=== PATIENT | female | born 1960 | race African-American/Black ===

== ENCOUNTER 2017-11-18 09:16 | Day surgery (SDC) | payer OTHER ==
[2017-11-13 14:46] VITALS: BMI 43.7
[2017-11-18] MEDS ORDERED: PROPOFOL 20 ML ONE ×2 (09:20)
[2017-11-18] MEDS ORDERED: LIDOCAINE HCL/PF 2% SDV 5ML VIAL ONE (09:21)
[2017-11-18 11:15] VITALS: TEMP 97.4
[2017-11-18 11:40] VITALS: BP 140/86; PULSE 72
== END 2017-11-18 12:29 | disposition home or self-care (01) ==
LOC: FASU 09:16
PROVIDERS: ATTEND Internal Medicine Gastroenterology
PROC: 0DJD8ZZ Inspection of Lower Intestinal Tract, Via Natural or Artificial Opening Endoscopic (ICD-10-PCS; principal; 2017-11-18 10:39)
DX: Z86.010 Personal history of colon polyps (principal); K57.30 Diverticulosis of large intestine without perforation or abscess without bleeding
CPT/HCPCS: 82962

== ENCOUNTER 2019-06-24 04:43 | Day surgery (SDC) | payer OTHER | END 2019-06-24 15:00 | disposition home or self-care (01) | LOC: JASU-SURG 04:43 ==

== ENCOUNTER 2019-08-01 14:50 | Emergency (ER) | payer OTHER ==
--- NOTE | 2019-08-01 14:55 | PDOC ---
History of Present Illness - General Chief Complaint: Pain Stated Complaint: RIGHT SHOULDER Time Seen by Provider: 08/01/19 14:53 - History of Present Illness Initial Comments: The pt is a 59F w/ a history of HTN, HLD, T2DM, OA, and asthma who presents for evaluation of acute on chronic right shoulder pain. The pt reports long standing waxing and waning right shoulder pain that she will intermittently take Tramadol for. Yesterday her shoulder pain became spontaneously worse and was only minimally relieved by the Tramadol. She reports decreased ROM 2/2 pain. She denies trauma, injury, previous surgery, fevers, changes in sensation , or changes in strength. She states she received an injection in this shoulder 2 years ago for pain but has not required one since. 08/01/19 15:09 Past History - Past Medical History Allergies/Adverse Reactions: Allergies Allergy/AdvReac Type Severity Reaction Status Date / Time ketorolac tromethamine Allergy Intermediate "itchy,heart Verified 06/19/19 15:12 [From Toradol] beats fast,nausea" Home Medications: Ambulatory Orders Albuterol Sulfate Inhaler - [Ventolin Hfa Inhaler -] 1 - 2 inh PO PRN PRN Metformin HCl [Glucophage] 500 mg PO BID 06/19/19 Tramadol HCl 50 mg PO PRN PRN 06/19/19 Anemia: No Asthma: Yes ("no recent attack") Cancer: No Cardiac Disorders: No CVA: No COPD: No CHF: No Dementia: No Diabetes: Yes GI Disorders: No Disorders: No HTN: Yes Hypercholesterolemia: Yes Liver Disease: No Seizures: No Thyroid Disease: No - Surgical History Abdominal Surgery: No Appendectomy: Yes Cardiac Surgery: No Cholecystectomy: Yes Lung Surgery: No Neurologic Surgery: No Orthopedic Surgery: No - Immunization History Td Vaccination: Yes Immunization Up to Date: No - Psycho Social/Smoking Cessation Hx Smoking Status: No Smoking History: Never smoked Have you smoked in the past 12 months: No Number of Cigarettes Smoked Daily: 0 Cigars Per Day: 0 Hx Alcohol Use: Yes (socially) Drug/Substance Use Hx: No Substance Use Type: Alcohol Hx Substance Use Treatment: No Review of Systems - Review of Systems Able to Perform ROS?: Yes Comments:: GENERAL/CONSTITUTIONAL: No fever or chills. No weakness HEAD, EYES, EARS, NOSE AND THROAT: No change in vision. No change in hearing. No sore throat CARDIOVASCULAR: No chest pain or shortness of breath RESPIRATORY: Denies cough, hemoptysis GASTROINTESTINAL: No nausea, vomiting, diarrhea or constipation GENITOURINARY: No dysuria, frequency, or change in urination MUSCULOSKELETAL: +chronic b/l shoulder, back, and left knee pain SKIN: No rash NEUROLOGIC: No headache, vertigo, loss of consciousness, or change in strength/ sensation ENDOCRINE: No increased thirst. No abnormal weight change HEMATOLOGIC/LYMPHATIC: No anemia, easy bleeding ALLERGIC/IMMUNOLOGIC: No hives or skin allergy 08/01/19 14:54 Is the patient limited Dominican proficient: No *Physical Exam - Vital Signs Vital Signs Period Temp Pulse Resp BP Sys/Bosch Pulse Ox Last 24 Hr 98.3 F 72 16 156/90 98 08/01/19 15:15 - Physical Exam Comments: GENERAL: Awake, alert, and oriented to person/place/time, in no acute distress HEAD: No signs of trauma, normocephalic, atraumatic EYES: PERRLA, EOMI, sclera anicteric, conjunctiva clear ENT: Hearing grossly normal, nares patent. Moist mucosa LUNGS: No distress, speaks in full sentences, clear to auscultation bilaterally HEART: Regular rate and rhythm, normal S1 and S2, no murmurs appreciated, peripheral pulses normal and equal bilaterally ABDOMEN: Soft, protuberant, nontender, normoactive bowel sounds. No guarding, no rebound BACK: Right upper back w/ mild tenderness. No midline TTP over C/T/L spine EXTREMITIES: Right shoulder with reduced active abduction, flexion, and extension 2/2 pain. No overlying erythema or swelling appreciated on exam. 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 NEUROLOGICAL: Cranial nerves II through XII grossly intact. Normal speech, normal gait, no focal sensorimotor deficits SKIN: Warm, Dry 08/01/19 14:54 Medical Decision Making - Medical Decision Making The pt is a 59F w/ a history of T2DM, HTN, HLD, OA, and asthma who presents for evaluation of atraumatic acute on chronic right shoulder pain w/o swelling/ effusion/erythema/fever. ED Course Tylenol and Naproxen for pain R shoulder XR Will provide sling for comfort 08/01/19 15:29 R shoulder XR w/o acute fx/dislocation Plan for D/C w/ Ortho f/u Discharge instructions and return precautions given Pt in agreement and verbalized understanding Dispo: home 08/01/19 16:12 Discharge - Discharge Information Problems reviewed: Yes Clinical Impression/Diagnosis: Right shoulder pain Qualifiers: Chronicity: chronic Qualified Code(s): M25.511 - Pain in right shoulder Condition: Good - Admission No - Follow up/Referral Referrals: Shashi Mcneill MD [Primary Care Provider] - Alli Reddy MD [Staff Physician] - - Patient Discharge Instructions Patient Printed Discharge Instructions: DI for Osteoarthritis Additional Instructions: You were seen in the Emergency Department for evaluation of right shoulder pain. You were treated with Tylenol and Naproxen. Your x-ray was negative for acute fracture/pathology. Review the handout provided at discharge. Follow up with the Orthopedic referral given. For pain you may take Tylenol 650mg every 6 hours and Ibuprofen 600mg every 6-8 hours, alternating them each time. If your pain is not controlled with these, the Tramadol may be used for breakthrough pain. Return to the Emergency Department if you develop fevers/chills, joint swelling , redness, changes in sensation or strength, worsening symptoms, or any new/ concerning symptoms. - Post Discharge Activity
[2019-08-01 15:03] VITALS: TEMP 98.3; BMI 44.6
[2019-08-01] MEDS ORDERED: ACETAMINOPHEN 500 MG TABLET (FP) PO ONE (15:12)
[2019-08-01] MEDS ORDERED: ACETAMINOPHEN 500 MG TABLET (FP) ONE (15:15)
[2019-08-01] MEDS ORDERED: NAPROXEN 500 MG TABLET (FP) PO ONE (15:28)
[2019-08-01] MEDS ORDERED: NAPROXEN 500 MG TABLET (FP) ONE (15:30)
[2019-08-01 16:03] VITALS: BP 160/83; PULSE 70
--- NOTE | 2019-08-01 16:20 | PDOC ---
Attending Attestation - Resident Resident Name: JimboNadeem - ED Attending Attestation I have performed the following: I have examined & evaluated the patient, The case was reviewed & discussed with the resident, I agree w/resident's findings & plan - HPI HPI: 08/01/19 16:17 59-year-old female, works here in the hospital, has history of arthritis. Presents now complaining of increasing right shoulder arthritis, no trauma. No fever. Pain is worse with any movement of the arm, in any direction. - Physicial Exam PE: 08/01/19 16:18 Patient is awake, alert, complaining of right shoulder pain, holding the shoulder splinted because pain is induced by movement. There is no cervical spine tenderness. There is mild right trapezius tenderness. There is tenderness all around the glenohumeral joint posterior, superior, and anterior. There is no before meals joint tenderness. Strength and sensation in the right arm is intact. - Medical Decision Making 08/01/19 16:19 3 views of the right shoulder were performed. There is no fracture or dislocation. Radiology follow-up procedure was activated at the time of x-ray review as final radiology reading and review is pending. Patient advised to take Tylenol and/or Naprosyn as needed for pain. Sling provided. Orthopedic follow-up with her orthopedist Dr. Reddy advised next week.
== END 2019-08-01 16:26 | disposition home or self-care (01) ==
LOC: FER 14:50
DX: M25.511 Pain in right shoulder (principal); E11.9 Type 2 diabetes mellitus without complications; I10 Essential (primary) hypertension; E78.5 Hyperlipidemia, unspecified; M19.90 Unspecified osteoarthritis, unspecified site; J45.909 Unspecified asthma, uncomplicated
CPT/HCPCS: 73030-TC-RT-FY; 99282-25

== ENCOUNTER 2019-11-14 19:45 | Emergency (ER) | payer OTHER ==
[2019-11-14 20:01] VITALS: BP 138/69; PULSE 85; TEMP 98; BMI 44.6
[2019-11-14] MEDS ORDERED: predniSONE 20 MG TABLET (UD) PO ONE (20:21)
--- NOTE | 2019-11-14 20:22 | PDOC ---
Documentation entered by Gali Carey SCRIBE, acting as scribe for Michael Garrett MD. Michael Garrett MD: This documentation has been prepared by the luizibe, Gali Carey SCRIBE, under my direction and personally reviewed by me in its entirety. I confirm that the documentation accurately reflects all work , treatment, procedures, and medical decision making performed by me. History of Present Illness - General Chief Complaint: Pain Stated Complaint: RT ANKLE PAIN Time Seen by Provider: 11/14/19 19:48 History Source: Patient Exam Limitations: No Limitations - History of Present Illness Initial Comments: 11/14/19 20:14 The patient is a 59-year-old female who presents to the emergency department with right ankle pain. The patient reports over a year ago, she injured her ankle while walking. Since the incident, the patient has been having intermittent episodes of sharp pain to the right ankle, mostly felt on the lateral aspect of the ankle. Denies weakness or loss of sensation. PAST MEDICAL HISTORY: HTN, HLD, T2DM, OA, and asthma PAST SURGICAL HISTORY: Appendectomy and Cholecystectomy. FAMILY HISTORY: no pertinent history SOCIAL HISTORY: Pt lives with family and is employed at [employer]. MEDICATIONS: reviewed ALLERGIES: As per nursing notes PCP: Dr. Darren Mcneill. Review of system: General: No fevers or chills, no weakness, no weight loss HEENT: No change in vision. No sore throat,. No ear pain CardioVascular: No chest pain or shortness of breath Respiratory:No cough, or wheezing. Gastrointestinal: no nausea, vomiting, diarrhea or constipation, No rectal bleeding Genitourinary: No dysuria, hematuria, or frequency Musculoskeletal: +right ankle pain. No other joint or muscle pain or swelling Neurologic: No headache, vertigo, dizziness or loss of consciousness Psychiatric: nor depression Skin: No rashes or easy bruising Endocrine: no increased thirst or abnormal weight change Allergic: no skin or latex allergy All other systems reviewed and normal. Physical exam: GENERAL: The patient is awake, alert, and fully oriented, in no acute distress. HEAD: Normal with no signs of trauma. EYES: Pupils equal, round and reactive to light, extraocular movements intact, sclera anicteric, conjunctiva clear. EXTREMITIES: +no swelling, ecchymosis, erythema or increased warmth, some tenderness on palpation of the soft tissue of the lateral foot and ankle. Neurovascularly intact. Normal range of motion, no edema. NEUROLOGICAL: Normal speech, normal gait. PSYCH: Normal mood, normal affect. SKIN: Warm, Dry, normal turgor, no rashes or lesions noted. 11/14/19 21:09 Assessment and plan: This is a 59-year-old female who comes in complaining of right ankle pain. Patient has a history of twisting that ankle approximately 1 year ago. Patient states she has had intermittent pain but now it seems to be worse. Patient did have some discomfort on palpation of the soft tissues of the lateral ankle. An x-ray was done that does show degenerative changes in the that area as well so this most likely is the cause of her pain. Patient was recommended to follow-up with an orthopedist and or a research scholar. Patient discharged home Past History - Past Medical History Allergies/Adverse Reactions: Allergies Allergy/AdvReac Type Severity Reaction Status Date / Time ketorolac tromethamine Allergy Intermediate "itchy,heart Verified 06/19/19 15:12 [From Toradol] beats fast,nausea" Home Medications: Ambulatory Orders Albuterol Sulfate Inhaler - [Ventolin Hfa Inhaler -] 1 - 2 inh PO PRN PRN Metformin HCl [Glucophage] 500 mg PO BID 06/19/19 Tramadol HCl 50 mg PO PRN PRN 06/19/19 Anemia: No Asthma: Yes ("no recent attack") Cancer: No Cardiac Disorders: No CVA: No COPD: No CHF: No Dementia: No Diabetes: Yes GI Disorders: No Disorders: No HTN: Yes Hypercholesterolemia: Yes Liver Disease: No Seizures: No Thyroid Disease: No - Surgical History Abdominal Surgery: No Appendectomy: Yes Cardiac Surgery: No Cholecystectomy: Yes Lung Surgery: No Neurologic Surgery: No Orthopedic Surgery: No - Immunization History Td Vaccination: Yes Immunization Up to Date: No - Psycho Social/Smoking Cessation Hx Smoking Status: No Smoking History: Never smoked Have you smoked in the past 12 months: No Number of Cigarettes Smoked Daily: 0 Cigars Per Day: 0 Hx Alcohol Use: Yes (socially) Drug/Substance Use Hx: No Substance Use Type: Alcohol Hx Substance Use Treatment: No *Physical Exam - Vital Signs Last Vital Signs Temp Pulse Resp BP Pulse Ox 98 F 85 16 138/69 97 11/14/19 19:46 11/14/19 19:46 11/14/19 19:46 11/14/19 19:46 11/14/19 19:46 ED Treatment Course - RADIOLOGY Radiology Studies Ordered: Category Date Time Status ANKLE & FOOT-RIGHT* [RAD] Stat Radiology 11/14/19 19:49 Taken Discharge - Discharge Information Problems reviewed: Yes Clinical Impression/Diagnosis: Pain in right ankle and joints of right foot Condition: Stable Disposition: HOME - Admission No - Follow up/Referral Referrals: Shashi Mcneill MD [Primary Care Provider] - - Patient Discharge Instructions Additional Instructions: Take ibuprofen 3 tablets 3 times a day or naproxen 2 tablets twice a day with food for the next 5 days. Follow-up with the orthopedist next week. Return to the emergency department immediately with ANY new, persistent or worsening symptoms. Continue any medications as previously prescribed by your physician. You should follow up with your primary doctor as soon as possible regarding today's emergency department visit. . Please make sure your doctor reviews the results of your emergency evaluation. Thank you for coming to the Emergency Department today for your care. It was a pleasure to see you today. Please note that your evaluation is INCOMPLETE until you follow-up with your doctor. - Post Discharge Activity
[2019-11-14] MEDS ORDERED: predniSONE 20 MG TABLET (UD) ONE (20:23)
== END 2019-11-14 20:24 | disposition home or self-care (01) ==
LOC: FER 19:45
DX: M25.571 Pain in right ankle and joints of right foot (principal); Z88.8 Allergy status to other drugs, medicaments and biological substances; I10 Essential (primary) hypertension; E78.00 Pure hypercholesterolemia, unspecified; E11.9 Type 2 diabetes mellitus without complications
CPT/HCPCS: 73610-TC-RT-FY; 73630-TC-RT-FY; 99282-25

== ENCOUNTER 2021-05-23 21:48 | Emergency (ER) | payer OTHER ==
[2021-05-23 22:23] VITALS: BMI 44.6
[2021-05-23 22:37] LABS: BASO % 0.7 % (0-2.0); EOS % 0.9 % (0-4.5); HEMATOCRIT 39.4 % (32.4-45.2); HEMOGLOBIN 12.9 GM/dl (10.7-15.3); LYMPH % 41.4 % (8-40); MCH 28.3 pg (25.7-33.7); MCHC 32.8 g/dl (32.0-36.0); MEAN CELL VOLUME 86.3 fl (80-96); MEAN PLT VOLUME 8.2 fl (7.5-11.1); MONO % 9.5 % (3.8-10.2); NEUT % 47.5 % (42.8-82.8); PLATELET COUNT 369 10^3/uL (134-434); RBC 4.56 M/mm3 (3.60-5.2); RDW 13.9 % (11.6-15.6); WHITE BLOOD COUNT 7.5 K/mm3 (4.0-10.8)
[2021-05-23 22:39] LABS: INR 0.98 (0.82-1.09)
[2021-05-23 22:43] LABS: ALBUMIN 3.9 g/dl (3.4-5.0); BILIRUBIN,TOTAL 0.7 mg/dl (0.2-1); CALCIUM 8.8 mg/dl (8.5-10); CREATININE 1.5 mg/dl (0.55-1.3)
[2021-05-24 00:24] VITALS: BP 121/65; PULSE 67; TEMP 97.8
== END 2021-05-24 01:10 | disposition home or self-care (01) ==
LOC: FER 21:48
DX: R10.84 Generalized abdominal pain (principal)
CPT/HCPCS: 36415; 74176-TC; 80053; 81003; 85025; 85610; 99284-25

== ENCOUNTER 2021-09-08 15:55 | Emergency (ER) | payer OTHER ==
[2021-09-08 16:09] VITALS: BP 125/64; PULSE 77; TEMP 98.7; BMI 45.4
[2021-09-08 16:46] LABS: HEMATOCRIT 40.8 % (32.4-45.2); HEMOGLOBIN 13.7 GM/dl (10.7-15.3); MCH 28.8 pg (25.7-33.7); MCHC 33.5 g/dl (32.0-36.0); MEAN CELL VOLUME 86.1 fl (80-96); MEAN PLT VOLUME 8.1 fl (7.5-11.1); PLATELET COUNT 320 10^3/uL (134-434); RBC 4.74 M/mm3 (3.60-5.2); RDW 13.6 % (11.6-15.6); WHITE BLOOD COUNT 6.6 K/mm3 (4.0-10.8)
[2021-09-08] MEDS ORDERED: COLCHICINE 0.6 MG CAP PO ONE ×2 (16:55→17:03)
[2021-09-08 16:59] LABS: ALBUMIN 4.1 g/dl (3.4-5.0); BILIRUBIN,TOTAL 0.5 mg/dl (0.2-1); CALCIUM 8.9 mg/dl (8.5-10); CREATININE 1.3 mg/dl (0.55-1.3); TOT PROT 7.3 g/dl (6.4-8.2); URIC ACID 9.4 mg/dl (2.6-7.2)
[2021-09-08] MEDS ORDERED: COLCHICINE 0.6 MG TAB PO ONE (17:47)
[2021-09-08 19:27] LABS: PLATELET ESTIMATE SLT INCREASE
== END 2021-09-08 18:05 | disposition home or self-care (01) ==
LOC: FER 15:55
DX: M10.271 Drug-induced gout, right ankle and foot (principal)
CPT/HCPCS: 36415; 73630-TC-RT-FY; 80053; 84550; 85025; 99283-25

== ENCOUNTER 2022-07-06 11:50 | Emergency (ER) | payer OTHER ==
[2022-07-06] MEDS ORDERED: METOCLOPRAMIDE HCL INJECTION 10 MG/2 ML VIAL IVPB ONE (12:03)
[2022-07-06] MEDS ORDERED: MAG HYDROX/AL HYDROX/SIMETH 30 ML UNIT-DOSE CUP PO ONE (12:04)
[2022-07-06] MEDS ORDERED: FAMOTIDINE 20 MG/50 ML IVPB 20 MG/50 ML MG IVPB ONE ×2 (12:04→12:26)
[2022-07-06] MEDS ORDERED: SODIUM CHLORIDE 0.9% 500 ML INFUS.BAG IV ONE (12:04)
[2022-07-06 12:20] VITALS: TEMP 98.5; BMI 47.0
[2022-07-06] MEDS ORDERED: METOCLOPRAMIDE HCL INJECTION 10 MG/2 ML VIAL ONE (12:25)
[2022-07-06] MEDS ORDERED: MAG HYDROX/AL HYDROX/SIMETH 30 ML UNIT-DOSE CUP ONE (12:26)
[2022-07-06 13:17] LABS: HEMATOCRIT 44.6 % (32.4-45.2); HEMOGLOBIN 14.7 G/dL (10.7-15.3); MCH 27.7 pg (25.7-33.7); MCHC 32.9 g/dl (32.0-36.0); MEAN CELL VOLUME 84.2 fl (80-96); MEAN PLT VOLUME 8.1 fl (7.5-11.1); PLATELET COUNT 361.9 10^3/uL (134-434); RDW 15.8 % (11.6-15.6); WHITE BLOOD COUNT 10.7 10^3/uL (4.0-10.8)
[2022-07-06 13:22] LABS: ALBUMIN 3.8 g/dl (3.4-5.0); BILIRUBIN,TOTAL 1.1 mg/dl (0.2-1); CALCIUM 9.1 mg/dl (8.5-10); CREATININE 1.1 mg/dl (0.55-1.3); TOT PROT 7.3 g/dl (6.4-8.2)
[2022-07-06 13:30] LABS: EPITHELIAL CELLS MODERATE /hpf
[2022-07-06 14:22] LABS: ANISOCYTOSIS 1+; PLATELET ESTIMATE ADEQUATE
[2022-07-06 14:50] VITALS: BP 128/65; PULSE 65; RESP 19
== END 2022-07-06 15:12 | disposition home or self-care (01) ==
LOC: FER 11:50
PROC: 3E033GC Introduction of Other Therapeutic Substance into Peripheral Vein, Percutaneous Approach (ICD-10-PCS; principal; 2022-07-06)
PROC: 3E033GC Introduction of Other Therapeutic Substance into Peripheral Vein, Percutaneous Approach (ICD-10-PCS; 2022-07-06)
DX: I10 Essential (primary) hypertension (principal)
CPT/HCPCS: 36415; 80053; 81003; 81015; 83690; 84484; 85027; 93005; 99284-25

== ENCOUNTER 2022-07-20 18:23 | Emergency (ER) | payer OTHER ==
[2022-07-20 18:48] VITALS: BP 175/89; PULSE 73; RESP 18; TEMP 98.8; BMI 46.8
[2022-07-20 20:24] LABS: HEMATOCRIT 40.4 % (32.4-45.2); HEMOGLOBIN 13.9 G/dL (10.7-15.3); MCH 28.9 pg (25.7-33.7); MCHC 34.3 g/dl (32.0-36.0); MEAN CELL VOLUME 84.4 fl (80-96); PLATELET COUNT 391.2 10^3/uL (134-434); RBC 4.79 10^6/uL (3.60-5.2); RDW 14.7 % (11.6-15.6); WHITE BLOOD COUNT 8.5 10^3/uL (4.0-10.8)
[2022-07-20 20:38] LABS: ALBUMIN 3.8 g/dl (3.4-5.0); BILIRUBIN,TOTAL 0.6 mg/dl (0.2-1); CALCIUM 9.2 mg/dl (8.5-10); TOT PROT 7.1 g/dl (6.4-8.2)
[2022-07-20 20:46] LABS: PLATELET ESTIMATE ADEQUATE
[2022-07-20] MEDS ORDERED: ONDANSETRON 4 MG/2 ML VIAL IVPUSH ONE (22:47)
[2022-07-20] MEDS ORDERED: ONDANSETRON 4 MG/2 ML VIAL ONE (22:49)
[2022-07-21] MEDS ORDERED: metroNIDAZOLE 500 MG TABLET PO ONE (00:01)
[2022-07-21] MEDS ORDERED: metroNIDAZOLE 250 MG TABLET ONE (00:09)
== END 2022-07-21 01:57 | disposition home or self-care (01) ==
LOC: FER 18:23
PROC: 3E033GC Introduction of Other Therapeutic Substance into Peripheral Vein, Percutaneous Approach (ICD-10-PCS; principal; 2022-07-20)
DX: K57.92 Diverticulitis of intestine, part unspecified, without perforation or abscess without bleeding (principal)
CPT/HCPCS: 36415; 74177-TC; 80053; 81003; 81015; 83690; 85027; 99285-25; Q9967

== ENCOUNTER 2022-08-25 12:43 | Emergency (ER) | payer OTHER ==
[2022-08-25 12:56] VITALS: RESP 18; TEMP 98.7; BMI 46.7
[2022-08-25] MEDS ORDERED: ACETAMINOPHEN 1000 MG/100 ML BAG IVPB ONE (13:27)
[2022-08-25] MEDS ORDERED: ONDANSETRON 4 MG/2 ML VIAL IVPB ONE (13:27)
[2022-08-25] MEDS ORDERED: ONDANSETRON 4 MG/2 ML VIAL ONE (13:42)
[2022-08-25] MEDS ORDERED: ACETAMINOPHEN INJECTION 100 ML IVPB ONE (13:42)
[2022-08-25 13:56] LABS: EPITHELIAL CELLS FEW /hpf
[2022-08-25 14:01] LABS: HEMATOCRIT 38.7 % (32.4-45.2); HEMOGLOBIN 13.4 G/dL (10.7-15.3); MCHC 34.5 g/dl (32.0-36.0); MEAN CELL VOLUME 84.1 fl (80-96); MEAN PLT VOLUME 7.8 fl (7.5-11.1); RDW 15.6 % (11.6-15.6); WHITE BLOOD COUNT 5.9 10^3/uL (4.0-10.8)
[2022-08-25 14:04] LABS: PLATELET ESTIMATE ADEQUATE
[2022-08-25 14:09] LABS: ALBUMIN 3.8 g/dl (3.4-5.0); BILIRUBIN,TOTAL 0.9 mg/dl (0.2-1); CALCIUM 9.3 mg/dl (8.5-10); CREATININE 1.1 mg/dl (0.55-1.3)
[2022-08-25] MEDS ORDERED: morphine CARPU-JECT 2 MG/1 ML DISP.SYRIN IVPUSH ONE (16:35)
[2022-08-25] MEDS ORDERED: METOCLOPRAMIDE HCL INJECTION 10 MG/2 ML VIAL IVPUSH ONE (16:36)
[2022-08-25] MEDS ORDERED: morphine SULFATE 4 MG/ML VIAL ONE (16:43)
[2022-08-25] MEDS ORDERED: AMOX TR/POT CLAV 875MG/125MG TABLETS (FP) PO ONE (16:56)
[2022-08-25] MEDS ORDERED: AMOX TR/POT CLAV 875MG/125MG TABLETS (FP) ONE (17:24)
[2022-08-25 17:35] VITALS: BP 160/93; PULSE 81
== END 2022-08-25 18:20 | disposition home or self-care (01) ==
LOC: FER 12:43
PROC: 3E033GC Introduction of Other Therapeutic Substance into Peripheral Vein, Percutaneous Approach (ICD-10-PCS; principal; 2022-08-25)
DX: K57.92 Diverticulitis of intestine, part unspecified, without perforation or abscess without bleeding (principal)
CPT/HCPCS: 36415; 74177-TC; 80053; 81003; 81015; 85027; 99285-25; Q9967

== ENCOUNTER 2022-10-14 22:47 | Emergency (ER) | payer OTHER ==
[2022-10-14] MEDS ORDERED: ACETAMINOPHEN 500 MG TABLET (FP) PO ONE (23:16)
[2022-10-14] MEDS ORDERED: ACETAMINOPHEN 500 MG TABLET (FP) ONE (23:20)
[2022-10-14 23:45] VITALS: BP 152/86; PULSE 89; RESP 20; TEMP 98; BMI 51.5
== END 2022-10-14 23:46 | disposition home or self-care (01) ==
LOC: FER 22:47
DX: M19.071 Primary osteoarthritis, right ankle and foot (principal); M25.571 Pain in right ankle and joints of right foot
CPT/HCPCS: 73610-TC-RT-FY; 73630-TC-RT-FY; 99283-25

== ENCOUNTER 2023-02-21 12:14 | Emergency (ER) | payer OTHER ==
[2023-02-21 14:04] VITALS: BP 134/77; PULSE 77; RESP 20; TEMP 98.2; BMI 44.6
[2023-02-21 14:19] LABS: HEMATOCRIT 39.4 % (32.4-45.2); HEMOGLOBIN 13.1 G/dL (10.7-15.3); MCH 28.3 pg (25.7-33.7); MCHC 33.3 g/dl (32.0-36.0); MEAN CELL VOLUME 84.9 fl (80-96); MEAN PLT VOLUME 8.7 fl (7.5-11.1); PLATELET COUNT 295.5 10^3/uL (134-434); RBC 4.64 10^6/uL (3.60-5.2); RDW 15.4 % (11.6-15.6); WHITE BLOOD COUNT 5.7 10^3/uL (4.0-10.8)
[2023-02-21 14:21] LABS: BILIRUBIN,TOTAL 0.6 mg/dl (0.2-1); CALCIUM 9.1 mg/dl (8.5-10); CREATININE 1.1 mg/dl (0.55-1.3); TOT PROT 7.3 g/dl (6.4-8.2)
== END 2023-02-21 15:07 | disposition home or self-care (01) ==
LOC: FER 12:14
DX: M25.471 Effusion, right ankle (principal); M25.472 Effusion, left ankle
CPT/HCPCS: 36415; 71046-TC-FY; 80053; 85027; 93970-TC; 99285-25

== ENCOUNTER 2024-04-03 23:04 | Emergency (ER) | payer OTHER ==
[2024-04-03 23:22] VITALS: BP 139/77; PULSE 87; RESP 18; TEMP 97.8; BMI 44.6
== END 2024-04-04 00:51 | disposition home or self-care (01) ==
LOC: FER 23:04
DX: G44.201 Tension-type headache, unspecified, intractable (principal); H53.8 Other visual disturbances
CPT/HCPCS: 70450-TC; 93005; 99284-25

== ENCOUNTER 2024-08-04 15:15 | Observation (INO) | payer OTHER ==
[2024-08-04 16:20] LABS: HEMATOCRIT 41.9 % (32.4-45.2); HEMOGLOBIN 13.1 G/dL (10.7-15.3); MCH 26.6 pg (25.7-33.7); MCHC 31.2 g/dl (32.0-36.0); MEAN CELL VOLUME 85.3 fl (80-96); MEAN PLT VOLUME 7.8 fl (7.5-11.1); PLATELET COUNT 315.3 10^3/uL (134-434); RBC 4.91 10^6/uL (3.60-5.2); RDW 16.3 % (11.6-15.6); WHITE BLOOD COUNT 6.2 10^3/uL (4.0-10.8)
[2024-08-04 16:27] LABS: INR 0.97 (0.83-1.09); PROTHROMBIN TIME (PATIENT) 11.1 SEC (9.7-13.0)
[2024-08-04 16:28] LABS: PLATELET ESTIMATE ADEQUATE
[2024-08-04 16:39] LABS: ALBUMIN 4.1 g/dl (3.4-5.0); BILIRUBIN,TOTAL 0.4 mg/dl (0.2-1); CREATININE 1.1 mg/dl (0.6-1.3); MAGNESIUM 2.1 mg/dL (1.8-2.4); TOT PROT 6.9 g/dl (6.4-8.2)
[2024-08-04] MEDS ORDERED: ASPIRIN 81 MG CHEWABLE TABLETS ONE (16:59)
[2024-08-04] MEDS: ASPIRIN 325 MG TABLET PO ONE (17:02)
[2024-08-04] MEDS ORDERED: ALBUTEROL SO4 HFA INHALER IH PRN (20:38)
[2024-08-04] MEDS ORDERED: DOCUSATE SODIUM 100 MG CAPSULE (FP) PO PRN (20:51)
[2024-08-04] MEDS ORDERED: ACETAMINOPHEN 325 MG TABLET (FP) PO PRN (20:51)
[2024-08-04] MEDS ORDERED: MELATONIN 5 MG TABLETS PO PRN (20:54)
[2024-08-05 00:29] VITALS: BMI 45.3
[2024-08-05] MEDS: GABAPENTIN 300 MG CAPSULE PO SCH ×2 (00:31→15:12)
[2024-08-05] MEDS: INSULIN ASPART SLIDING SCALE (NOVOLOG) 1 VIAL SQ SCH ×2 (00:31→17:11)
[2024-08-05] MEDS ORDERED: HEPARIN NA (PORCINE) 5,000 UNITS/ML 1ML VIAL IVPUSH PRN ×2 (01:26)
[2024-08-05] MEDS: NITROGLYCERIN SUBLINGUAL 1/150 0.4 MG TAB SL ONE (01:30)
[2024-08-05] MEDS: HEPARIN NA (PORCINE) 5,000 UNITS/ML 1ML VIAL IVPUSH ONE (04:09)
[2024-08-05] MEDS: HEPARIN INFUSION - 25,000 UNITS/500 ML INFUS.BAG IVPB SCH (04:10)
[2024-08-05] MEDS ORDERED: ACETAMINOPHEN 325 MG TABLET (FP) PO PRN (07:29)
[2024-08-05 08:03] LABS: POTASSIUM 3.8 mmol/L (3.5-5.1)
[2024-08-05 09:24] LABS: HEMOGLOBIN 12.9 GM/dL (10.7-15.3); MEAN PLT VOLUME 7.8 fl (7.5-11.1)
[2024-08-05 09:26] LABS: BASO % 0.2 % (0-2.0); EOS % 0.6 % (0-4.5); HEMATOCRIT 39.3 % (32.4-45.2); LYMPH % 45.5 % (8-40); MCHC 32.8 g/dl (32.0-36.0); MEAN CELL VOLUME 82.3 fl (80-96); MONO % 7.3 % (3.8-10.2); NEUT % 46.4 % (42.8-82.8); PLATELET COUNT 368 10^3/uL (134-434); RBC 4.77 M/mm3 (3.60-5.2); RDW 15.5 % (11.6-15.6); WHITE BLOOD COUNT 6.2 K/mm3 (4.0-10.0)
[2024-08-05] MEDS: LISINOPRIL 20 MG TABLET PO SCH (11:15)
[2024-08-05] MEDS ORDERED: MELATONIN 5 MG TABLETS PO PRN (12:52)
[2024-08-05] MEDS ORDERED: ALBUTEROL SO4 HFA INHALER IH PRN (12:52)
[2024-08-05] MEDS ORDERED: DOCUSATE SODIUM 100 MG CAPSULE (FP) PO PRN (12:52)
[2024-08-05 16:49] LABS: ACTIVATED PTT 39.2 SECONDS (25.2-36.5); INR 0.95 (0.83-1.09); PROTHROMBIN TIME (PATIENT) 10.9 SEC (9.7-13.0)
[2024-08-05] MEDS: ROSUVASTATIN CA 20 MG TABLET PO SCH (21:07)
[2024-08-05] MEDS ORDERED: ROSUVASTATIN CA 20 MG TABLET PO SCH (22:00)
[2024-08-05] MEDS ORDERED: DOXAZOSIN MESYLATE 1 MG TABLET PO SCH (22:00)
[2024-08-05] MEDS: DOXAZOSIN MESYLATE 1 MG TABLET PO SCH (22:05)
[2024-08-06 07:56] LABS: BASO % 0.3 % (0-2.0); EOS % 0.7 % (0-4.5); HEMOGLOBIN 12.5 GM/dL (10.7-15.3); LYMPH % 41.6 % (8-40); MCH 26.7 pg (25.7-33.7); MEAN CELL VOLUME 83.5 fl (80-96); MEAN PLT VOLUME 7.5 fl (7.5-11.1); MONO % 7.3 % (3.8-10.2); NEUT % 50.1 % (42.8-82.8); PLATELET COUNT 362 10^3/uL (134-434); RBC 4.68 M/mm3 (3.60-5.2); RDW 15.6 % (11.6-15.6)
[2024-08-06 08:11] LABS: POTASSIUM 4.5 mmol/L (3.5-5.1)
[2024-08-06 08:13] LABS: CALCIUM 9.2 mg/dL (8.5-10.1)
[2024-08-06 08:14] LABS: BLOOD UREA NITROGEN 14.4 mg/dL (7-18); MAGNESIUM 2.3 mg/dL (1.8-2.4)
[2024-08-06 08:17] LABS: CREATININE 1.1 mg/dL (0.55-1.3); PHOSPHOROUS 4.3 mg/dL (2.5-4.9)
[2024-08-06] MEDS ORDERED: REGADENOSON 0.4 MG/5 ML PRE-FILLED SYRINGE IVPUSH ONE (08:31)
[2024-08-06] MEDS: REGADENOSON 0.4 MG/5 ML PRE-FILLED SYRINGE IVPUSH ONE (09:00)
[2024-08-06] MEDS: LISINOPRIL 20 MG TABLET PO SCH (11:18)
[2024-08-06 18:14] VITALS: BP 143/75; PULSE 87; RESP 17; TEMP 98.8
== END 2024-08-06 18:48 | disposition home or self-care (01) ==
LOC: FER 15:15 → FM/S 18:20 → J4S 08-05 10:55
PROVIDERS: ADMIT Internal Medicine; ATTEND Internal Medicine
PROC: 3E033GC Introduction of Other Therapeutic Substance into Peripheral Vein, Percutaneous Approach (ICD-10-PCS; principal; 2024-08-04)
DX: I45.2 Bifascicular block (principal); I10 Essential (primary) hypertension; E78.5 Hyperlipidemia, unspecified; E11.9 Type 2 diabetes mellitus without complications; J45.909 Unspecified asthma, uncomplicated; R94.31 Abnormal electrocardiogram [ECG] [EKG]; G47.33 Obstructive sleep apnea (adult) (pediatric); R79.89 Other specified abnormal findings of blood chemistry; Z88.8 Allergy status to other drugs, medicaments and biological substances; Z90.79 Acquired absence of other genital organ(s); Z90.49 Acquired absence of other specified parts of digestive tract
CPT/HCPCS: 0241U-QW; 36415; 71045-TC-FY; 78452-TC; 80048; 80053; 81003; 82550; 82962; 83735; 84100; 84439; 84443; 84484; 85025; 85027; 85610; 85730; 93005; 93017; 93306-TC; 96365; 96375; 99285-25; A9502; G0378; J1644; J2785

== ENCOUNTER 2024-08-11 14:27 | Emergency (ER) | payer OTHER ==
[2024-08-11 14:40] VITALS: BP 128/73; PULSE 77; RESP 18; TEMP 98; BMI 43.6
[2024-08-11 16:03] LABS: BASO % 0.7 % (0-2.0); EOS % 0.4 % (0-4.5); HEMATOCRIT 40.5 % (32.4-45.2); HEMOGLOBIN 13.2 GM/dL (10.7-15.3); LYMPH % 28.6 % (8-40); MCH 26.8 pg (25.7-33.7); MCHC 32.7 g/dl (32.0-36.0); MEAN PLT VOLUME 7.5 fl (7.5-11.1); MONO % 6.2 % (3.8-10.2); NEUT % 64.1 % (42.8-82.8); PLATELET COUNT 371 10^3/uL (134-434); RBC 4.93 M/mm3 (3.60-5.2); RDW 16.1 % (11.6-15.6); WHITE BLOOD COUNT 6.9 K/mm3 (4.0-10.0)
[2024-08-11 16:15] LABS: INR 1.02 (0.83-1.09); PROTHROMBIN TIME (PATIENT) 11.7 SEC (9.7-13.0)
[2024-08-11 16:17] LABS: ACTIVATED PTT 36.2 SECONDS (25.2-36.5); ALBUMIN 3.6 g/dl (3.4-5.0); BLOOD UREA NITROGEN 20.8 mg/dL (7-18); CALCIUM 9.3 mg/dL (8.5-10.1); MAGNESIUM 2.3 mg/dL (1.8-2.4)
[2024-08-11 16:21] LABS: CREATININE 1.4 mg/dL (0.55-1.3)
[2024-08-11 16:22] LABS: BILIRUBIN,TOTAL 0.4 mg/dL (0.2-1); TOT PROT 7.5 g/dl (6.4-8.2)
[2024-08-11] MEDS: LACTATED RINGERS SOLUTION 1000 ML INFUS.BAG IV ONE (17:10)
== END 2024-08-11 20:35 | disposition home or self-care (01) ==
LOC: JER 14:27
DX: R00.2 Palpitations (principal); R07.89 Other chest pain; R06.00 Dyspnea, unspecified
CPT/HCPCS: 36415; 71046-TC-FY; 71275-TC; 80053; 83735; 84443; 84484; 85025; 85379; 85610; 85730; 86850; 86900; 86901; 93005; 93010; 99285-25; Q9967

== ENCOUNTER 2024-08-14 18:08 | Inpatient (IN) | payer OTHER ==
[2024-08-14] MEDS ORDERED: ATROPINE SULFATE 1 MG/10 ML DISP.SYRIN ONE ×2 (19:35→20:40)
[2024-08-14] MEDS: ATROPINE SULFATE 1 MG/10 ML DISP.SYRIN IVPUSH ONE ×2 (19:42→20:50)
[2024-08-14] MEDS: SODIUM CHLORIDE 0.9% 500 ML INFUS.BAG IV ONE (19:42)
[2024-08-14 19:51] LABS: BASO % 0.6 % (0-2.0); EOS % 0.6 % (0-4.5); HEMATOCRIT 38.9 % (32.4-45.2); HEMOGLOBIN 12.7 GM/dL (10.7-15.3); LYMPH % 36.5 % (8-40); MCH 26.9 pg (25.7-33.7); MCHC 32.7 g/dl (32.0-36.0); MEAN CELL VOLUME 82.2 fl (80-96); MONO % 7.6 % (3.8-10.2); NEUT % 54.7 % (42.8-82.8); PLATELET COUNT 352 10^3/uL (134-434); RBC 4.73 M/mm3 (3.60-5.2); RDW 15.6 % (11.6-15.6); WHITE BLOOD COUNT 8.9 K/mm3 (4.0-10.0)
[2024-08-14 20:10] LABS: POTASSIUM 5.1 mmol/L (3.5-5.1)
[2024-08-14 20:14] LABS: ALBUMIN 3.5 g/dl (3.4-5.0); BLOOD UREA NITROGEN 22.2 mg/dL (7-18)
[2024-08-14 20:17] LABS: CREATININE 1.3 mg/dL (0.55-1.3)
[2024-08-14 20:18] LABS: BILIRUBIN,TOTAL 0.5 mg/dL (0.2-1); TOT PROT 7.4 g/dl (6.4-8.2)
[2024-08-14 20:21] LABS: N-TERMINAL BNP 21.2 pg/ml (5-125)
[2024-08-15] MEDS: INSULIN ASPART SLIDING SCALE (NOVOLOG) 1 VIAL SQ SCH (00:35)
[2024-08-15 01:52] VITALS: BMI 43.7
[2024-08-15] MEDS: GABAPENTIN 300 MG CAPSULE PO SCH ×2 (06:25→21:08)
[2024-08-15 07:43] LABS: BASO % 0.4 % (0-2.0); EOS % 0.6 % (0-4.5); HEMATOCRIT 37.8 % (32.4-45.2); LYMPH % 39.1 % (8-40); MCH 26.3 pg (25.7-33.7); MCHC 31.7 g/dl (32.0-36.0); MEAN CELL VOLUME 82.9 fl (80-96); MEAN PLT VOLUME 7.6 fl (7.5-11.1); NEUT % 51.9 % (42.8-82.8); PLATELET COUNT 317 10^3/uL (134-434); RBC 4.56 M/mm3 (3.60-5.2); RDW 15.9 % (11.6-15.6); WHITE BLOOD COUNT 6.8 K/mm3 (4.0-10.0)
[2024-08-15 08:13] LABS: ALBUMIN 3.3 g/dl (3.4-5.0); CALCIUM 9.4 mg/dL (8.5-10.1); MAGNESIUM 2.2 mg/dL (1.8-2.4)
[2024-08-15 08:14] LABS: BLOOD UREA NITROGEN 16.5 mg/dL (7-18)
[2024-08-15 08:17] LABS: PHOSPHOROUS 4.1 mg/dL (2.5-4.9)
[2024-08-15 08:18] LABS: BILIRUBIN,TOTAL 0.5 mg/dL (0.2-1); TOT PROT 6.5 g/dl (6.4-8.2)
[2024-08-15] MEDS ORDERED: ATROPINE SULFATE 1 MG/10 ML DISP.SYRIN ONE (15:44)
[2024-08-15] MEDS ORDERED: DOPAMINE 400 MG/D5W - 400,000 MCG/250 ML INFUS.BAG IVPB ONE (15:48)
[2024-08-15] MEDS ORDERED: ALBUTEROL SO4 HFA INHALER IH PRN ×4 (15:54→19:01)
[2024-08-15] MEDS: DOPAMINE 400 MG/D5W - 400,000 MCG/250 ML INFUS.BAG IVPB SCH (16:13)
[2024-08-15] MEDS: LISINOPRIL 20 MG TABLET PO SCH (16:13)
[2024-08-15] MEDS: CHLORHEXIDINE GLUCONATE 4% CLEANSER FOR DECOLONIZATION TP SCH (21:08)
[2024-08-15] MEDS: ROSUVASTATIN CA 20 MG TABLET PO SCH (21:09)
[2024-08-15] MEDS: MUPIROCIN 2% TOPICAL OINTMENT FOR DECOLONIZATION NS SCH (21:11)
[2024-08-15] MEDS ORDERED: ROSUVASTATIN CA 20 MG TABLET PO SCH (22:00)
[2024-08-16] MEDS: INSULIN ASPART SLIDING SCALE (NOVOLOG) 1 VIAL SQ SCH (06:58)
[2024-08-16 07:24] LABS: BASO % 0.6 % (0-2.0); EOS % 0.6 % (0-4.5); HEMATOCRIT 39.3 % (32.4-45.2); HEMOGLOBIN 12.6 GM/dL (10.7-15.3); LYMPH % 37.3 % (8-40); MCH 26.6 pg (25.7-33.7); MEAN CELL VOLUME 83.1 fl (80-96); MEAN PLT VOLUME 7.5 fl (7.5-11.1); MONO % 8.4 % (3.8-10.2); NEUT % 53.1 % (42.8-82.8); PLATELET COUNT 338 10^3/uL (134-434); RBC 4.73 M/mm3 (3.60-5.2); RDW 15.8 % (11.6-15.6); WHITE BLOOD COUNT 7.4 K/mm3 (4.0-10.0)
[2024-08-16 07:32] LABS: POTASSIUM 3.9 mmol/L (3.5-5.1)
[2024-08-16 07:34] LABS: CALCIUM 9.3 mg/dL (8.5-10.1)
[2024-08-16 07:35] LABS: ALBUMIN 3.5 g/dl (3.4-5.0); BLOOD UREA NITROGEN 12.1 mg/dL (7-18); MAGNESIUM 2.3 mg/dL (1.8-2.4)
[2024-08-16 07:38] LABS: CREATININE 1.1 mg/dL (0.55-1.3); PHOSPHOROUS 4.2 mg/dL (2.5-4.9)
[2024-08-16 07:39] LABS: BILIRUBIN,TOTAL 0.5 mg/dL (0.2-1)
[2024-08-16] MEDS: LISINOPRIL 20 MG TABLET PO SCH (10:15)
[2024-08-17 07:43] LABS: HEMATOCRIT 38.9 % (32.4-45.2); HEMOGLOBIN 12.9 GM/dL (10.7-15.3); MCH 27.5 pg (25.7-33.7); MCHC 33.2 g/dl (32.0-36.0); MEAN CELL VOLUME 82.9 fl (80-96); MEAN PLT VOLUME 7.5 fl (7.5-11.1); PLATELET COUNT 331 10^3/uL (134-434); RDW 15.9 % (11.6-15.6); WHITE BLOOD COUNT 5.9 K/mm3 (4.0-10.0)
[2024-08-17 07:58] LABS: POTASSIUM 4.4 mmol/L (3.5-5.1)
[2024-08-17 08:00] LABS: BLOOD UREA NITROGEN 20.1 mg/dL (7-18); CALCIUM 9.2 mg/dL (8.5-10.1)
[2024-08-17 08:01] LABS: MAGNESIUM 2.3 mg/dL (1.8-2.4)
[2024-08-17 08:03] LABS: CREATININE 1.2 mg/dL (0.55-1.3)
[2024-08-17 08:04] LABS: PHOSPHOROUS 4.7 mg/dL (2.5-4.9)
[2024-08-17 21:27] VITALS: RESP 20; TEMP 98.2
[2024-08-17 22:04] VITALS: BP 119/65; PULSE 77
== END 2024-08-17 23:50 | disposition short-term general hospital (02) | DRG 309 ==
LOC: JER 18:08 → JERBED 23:19 → J2W 08-15 01:12 → JICU 08-15 19:27
PROVIDERS: ADMIT Internal Medicine; ATTEND Internal Medicine Pulmonary Disease
DX: I44.2 Atrioventricular block, complete (principal); Z68.41 Body mass index [BMI] 40.0-44.9, adult; I10 Essential (primary) hypertension; E11.9 Type 2 diabetes mellitus without complications; J45.909 Unspecified asthma, uncomplicated; E78.5 Hyperlipidemia, unspecified; Z79.84 Long term (current) use of oral hypoglycemic drugs; E66.9 Obesity, unspecified; E11.40 Type 2 diabetes mellitus with diabetic neuropathy, unspecified; G47.33 Obstructive sleep apnea (adult) (pediatric); I51.7 Cardiomegaly; R55 Syncope and collapse
CPT/HCPCS: 36415; 71045-TC-FY; 80048; 80053; 82962; 83036; 83735; 83880; 84100; 84484; 85025; 85027; 87635; 93005; 93010; 99291

== ENCOUNTER 2024-09-26 10:02 | Observation (INO) | payer OTHER ==
[2024-09-26 11:24] LABS: HEMATOCRIT 40.7 % (32.4-45.2); HEMOGLOBIN 13.3 G/dL (10.7-15.3); MCH 27.1 pg (25.7-33.7); MCHC 32.7 g/dl (32.0-36.0); MEAN CELL VOLUME 83.1 fl (80-96); MEAN PLT VOLUME 8.3 fl (7.5-11.1); PLATELET COUNT 332.8 10^3/uL (134-434); WHITE BLOOD COUNT 5.5 10^3/uL (4.0-10.8)
[2024-09-26 11:26] LABS: PLATELET ESTIMATE ADEQUATE
[2024-09-26 11:32] LABS: ALBUMIN 4.2 g/dl (3.4-5.0); BILIRUBIN,TOTAL 0.5 mg/dl (0.2-1); CALCIUM 9.7 mg/dl (8.5-10.1); CREATININE 1.1 mg/dl (0.6-1.3); POTASSIUM 4.1 mmol/L (3.5-5.1); TOT PROT 7.1 g/dl (6.4-8.2)
[2024-09-26] MEDS ORDERED: ASPIRIN 81 MG CHEWABLE TABLETS ONE (14:14)
[2024-09-26] MEDS: ASPIRIN 81 MG CHEWABLE TABLETS PO ONE (14:16)
[2024-09-26 16:16] VITALS: BMI 44.1
[2024-09-26] MEDS: ACETAMINOPHEN 1000 MG/100 ML BAG IVPB PRN (16:59)
[2024-09-26] MEDS: HYDROCHLOROTHIAZIDE 25 MG TABLET (FP) PO SCH (17:26)
[2024-09-26] MEDS: ROSUVASTATIN CA 20 MG TABLET PO SCH (21:23)
[2024-09-27] MEDS: amLODIPine BESYLATE 10 MG TABLET (FP) PO SCH (09:37)
[2024-09-27] MEDS: LISINOPRIL 10 MG TABLET PO SCH (09:37)
[2024-09-27 10:44] LABS: BILIRUBIN,TOTAL 0.4 mg/dl (0.2-1); CALCIUM 9.2 mg/dl (8.5-10.1); POTASSIUM 4.3 mmol/L (3.5-5.1); TOT PROT 6.9 g/dl (6.4-8.2)
[2024-09-27 11:18] LABS: BASO % 0.4 % (0-2.0); HEMATOCRIT 39.2 % (32.4-45.2); HEMOGLOBIN 12.6 GM/dL (10.7-15.3); LYMPH % 41.4 % (8-40); MCH 26.9 pg (25.7-33.7); MCHC 32.1 g/dl (32.0-36.0); MEAN CELL VOLUME 83.9 fl (80-96); MEAN PLT VOLUME 7.9 fl (7.5-11.1); MONO % 7.2 % (3.8-10.2); PLATELET COUNT 348 10^3/uL (134-434); RBC 4.67 M/mm3 (3.60-5.2); RDW 16.3 % (11.6-15.6); WHITE BLOOD COUNT 5.1 K/mm3 (4.0-10.0)
[2024-09-27] MEDS ORDERED: LISINOPRIL 20 MG TABLET PO ONE (11:59)
[2024-09-27] MEDS: LISINOPRIL 10 MG, LISINOPRIL 20 MG PO ONE (13:01)
[2024-09-27] MEDS: INSULIN ASPART SLIDING SCALE (NOVOLOG) 1 VIAL SQ SCH (13:07)
[2024-09-27] MEDS: GABAPENTIN 300 MG CAPSULE PO SCH (21:18)
[2024-09-28] MEDS: LISINOPRIL 20 MG TABLET PO SCH (10:42)
[2024-09-28 16:16] VITALS: BP 102/56; PULSE 80; RESP 16; TEMP 98.2
== END 2024-09-28 18:56 | disposition home or self-care (01) ==
LOC: FER 10:02 → FM/S 13:30
PROC: 3E033NZ Introduction of Analgesics, Hypnotics, Sedatives into Peripheral Vein, Percutaneous Approach (ICD-10-PCS; principal; 2024-09-26)
DX: I16.0 Hypertensive urgency (principal); G43.909 Migraine, unspecified, not intractable, without status migrainosus; E78.5 Hyperlipidemia, unspecified; J45.909 Unspecified asthma, uncomplicated; G47.33 Obstructive sleep apnea (adult) (pediatric); R73.03 Prediabetes; Z90.49 Acquired absence of other specified parts of digestive tract; Z95.0 Presence of cardiac pacemaker; E66.9 Obesity, unspecified
CPT/HCPCS: 36415; 70450-TC; 71045-TC-FY; 80053; 82962; 83036; 84439; 84443; 84484; 85025; 85027; 93005; 99285-25; G0378; J0131

== ENCOUNTER 2024-09-29 16:30 | Observation (INO) | payer OTHER ==
[2024-09-29 17:05] VITALS: BMI 43.6
[2024-09-29] MEDS ORDERED: ACETAMINOPHEN INJECTION 100 ML ONE (17:16)
[2024-09-29] MEDS: ACETAMINOPHEN 1000 MG/100 ML BAG IVPB ONE (17:32)
[2024-09-29 17:41] LABS: BASO % 0.5 % (0-2.0); EOS % 0.7 % (0-4.5); HEMATOCRIT 41.8 % (32.4-45.2); HEMOGLOBIN 13.1 GM/dL (10.7-15.3); LYMPH % 39.2 % (8-40); MCH 26.6 pg (25.7-33.7); MCHC 31.4 g/dl (32.0-36.0); MEAN CELL VOLUME 84.5 fl (80-96); MEAN PLT VOLUME 7.7 fl (7.5-11.1); MONO % 8.9 % (3.8-10.2); NEUT % 50.7 % (42.8-82.8); PLATELET COUNT 351 10^3/uL (134-434); RBC 4.94 M/mm3 (3.60-5.2); RDW 16.6 % (11.6-15.6); WHITE BLOOD COUNT 6.6 K/mm3 (4.0-10.0)
[2024-09-29 17:51] LABS: INR 0.98 (0.83-1.09); PROTHROMBIN TIME (PATIENT) 11.3 SEC (9.7-13.0)
[2024-09-29 17:54] LABS: ACTIVATED PTT 33.8 SECONDS (25.2-36.5)
[2024-09-29 18:01] LABS: CHLORIDE 109 mmol/L (98-107); SODIUM 136 mmol/L (136-145)
[2024-09-29 18:03] LABS: ALBUMIN 3.2 g/dl (3.4-5.0); BLOOD UREA NITROGEN 34.5 mg/dL (7-18); CALCIUM 8.7 mg/dL (8.5-10.1); CO2 26 mmol/L (21-32); GLUCOSE,RANDOM 111 mg/dL (74-106)
[2024-09-29 18:07] LABS: SGOT/AST 73 U/L (15-37)
[2024-09-29 18:08] LABS: BILIRUBIN,TOTAL 0.3 mg/dL (0.2-1); TOT PROT 7.6 g/dl (6.4-8.2)
[2024-09-29 18:09] LABS: ALK PHOS 98 U/L (45-117)
[2024-09-29 18:10] LABS: ANION GAP 2 mmol/L (4-13); POTASSIUM 9.4 mmol/L (3.5-5.1); SGPT/ALT 29 U/L (13-61)
[2024-09-29 18:11] LABS: N-TERMINAL BNP 21.3 pg/ml (5-125)
[2024-09-29] MEDS: LACTATED RINGERS SOLUTION 1000 ML INFUS.BAG IV ONE (18:44)
[2024-09-29 19:13] LABS: POTASSIUM 4.4 mmol/L (3.5-5.1)
[2024-09-29 19:14] LABS: CALCIUM 9.4 mg/dL (8.5-10.1)
[2024-09-29 19:15] LABS: BLOOD UREA NITROGEN 35.3 mg/dL (7-18); URINE APPEARANCE CLEAR; URINE BILIRUBIN NEGATIVE (NEGATIVE); URINE COLOR YELLOW; URINE GLUCOSE (UA) NEGATIVE (NEGATIVE); URINE KETONE NEGATIVE (NEGATIVE)
[2024-09-29 19:16] LABS: PH,URINE 5.5 (5.0-8.0); URINE LEUK ESTERASE NEGATIVE (NEGATIVE); URINE NITRITE NEGATIVE (NEGATIVE); URINE PROTEIN NEGATIVE (NEGATIVE); URINE UROBILINOGEN 0.2 mg/dL (0.2-1.0)
[2024-09-29 19:18] LABS: CREATININE 1.9 mg/dL (0.55-1.3)
[2024-09-29] MEDS ORDERED: ALBUTEROL SO4 HFA INHALER IH PRN (21:40)
[2024-09-29] MEDS ORDERED: ROSUVASTATIN CA 20 MG TABLET ONE (22:23)
[2024-09-29] MEDS: ROSUVASTATIN CA 20 MG TABLET PO SCH (22:27)
[2024-09-30] MEDS ORDERED: SODIUM CHLORIDE 1,000 ML IV SCH (00:45)
[2024-09-30] MEDS: SODIUM CHLORIDE 1,000 ML IV SCH (01:25)
[2024-09-30] MEDS: INSULIN ASPART SLIDING SCALE (NOVOLOG) 1 VIAL SQ SCH (06:43)
[2024-09-30] MEDS: HEPARIN NA (PORCINE) 5,000 UNITS/ML 1ML VIAL SQ SCH (06:46)
[2024-09-30 07:35] LABS: BASO % 0.4 % (0-2.0); EOS % 0.8 % (0-4.5); HEMATOCRIT 40.2 % (32.4-45.2); HEMOGLOBIN 12.9 GM/dL (10.7-15.3); LYMPH % 43.5 % (8-40); MCH 26.9 pg (25.7-33.7); MCHC 32.2 g/dl (32.0-36.0); MEAN CELL VOLUME 83.7 fl (80-96); MEAN PLT VOLUME 7.8 fl (7.5-11.1); MONO % 7.7 % (3.8-10.2); NEUT % 47.6 % (42.8-82.8); PLATELET COUNT 342 10^3/uL (134-434); RDW 16.1 % (11.6-15.6); WHITE BLOOD COUNT 5.6 K/mm3 (4.0-10.0)
[2024-09-30 07:45] LABS: POTASSIUM 4.4 mmol/L (3.5-5.1)
[2024-09-30 07:49] LABS: ALBUMIN 3.6 g/dl (3.4-5.0); CALCIUM 9.4 mg/dL (8.5-10.1)
[2024-09-30 07:50] LABS: BLOOD UREA NITROGEN 30.1 mg/dL (7-18); MAGNESIUM 2.3 mg/dL (1.8-2.4)
[2024-09-30 07:53] LABS: CREATININE 1.3 mg/dL (0.55-1.3)
[2024-09-30 07:54] LABS: BILIRUBIN,TOTAL 0.4 mg/dL (0.2-1); TOT PROT 7.1 g/dl (6.4-8.2)
[2024-09-30] MEDS ORDERED: ENOXAPARIN NA (PORCINE) 40 MG/0.4 ML DISP.SYRIN SQ SCH (10:00)
[2024-09-30] MEDS: GABAPENTIN 300 MG CAPSULE PO SCH (10:43)
[2024-09-30] MEDS: ASPIRIN 81 MG CHEWABLE TABLETS PO SCH (10:44)
[2024-09-30] MEDS: POLYETHYLENE GLYCOL (HEALTHYLAX) 3350 17 GM PACKET PO SCH (14:40)
[2024-10-01 08:22] LABS: HEMATOCRIT 39.1 % (32.4-45.2); HEMOGLOBIN 12.6 GM/dL (10.7-15.3); MCHC 32.3 g/dl (32.0-36.0); MEAN CELL VOLUME 83.8 fl (80-96); PLATELET COUNT 356 10^3/uL (134-434); RBC 4.66 M/mm3 (3.60-5.2); RDW 16.5 % (11.6-15.6); WHITE BLOOD COUNT 4.9 K/mm3 (4.0-10.0)
[2024-10-01 08:44] LABS: POTASSIUM 4.7 mmol/L (3.5-5.1)
[2024-10-01 08:47] LABS: BLOOD UREA NITROGEN 25.4 mg/dL (7-18); CALCIUM 9.2 mg/dL (8.5-10.1)
[2024-10-01 08:48] LABS: MAGNESIUM 2.3 mg/dL (1.8-2.4)
[2024-10-01 08:51] LABS: CREATININE 1.2 mg/dL (0.55-1.3); PHOSPHOROUS 3.8 mg/dL (2.5-4.9)
[2024-10-01] MEDS ORDERED: ACETAMINOPHEN 325 MG TABLET (FP) PO PRN (08:54)
[2024-10-01 21:30] VITALS: RESP 16
[2024-10-02 06:21] VITALS: PULSE 74
[2024-10-02] MEDS ORDERED: INSULIN ASPART SLIDING SCALE (NOVOLOG) 1 VIAL SQ ONE (06:26)
[2024-10-02 07:28] LABS: BASO % 0.5 % (0-2.0); EOS % 1.4 % (0-4.5); HEMATOCRIT 38.4 % (32.4-45.2); HEMOGLOBIN 12.8 GM/dL (10.7-15.3); LYMPH % 49.1 % (8-40); MCH 27.6 pg (25.7-33.7); MCHC 33.2 g/dl (32.0-36.0); MEAN CELL VOLUME 83.1 fl (80-96); MEAN PLT VOLUME 7.6 fl (7.5-11.1); MONO % 9.7 % (3.8-10.2); NEUT % 39.3 % (42.8-82.8); PLATELET COUNT 327 10^3/uL (134-434); RBC 4.63 M/mm3 (3.60-5.2); RDW 16.2 % (11.6-15.6); WHITE BLOOD COUNT 3.8 K/mm3 (4.0-10.0)
[2024-10-02 07:51] LABS: POTASSIUM 4.6 mmol/L (3.5-5.1)
[2024-10-02 07:57] LABS: CALCIUM 9.2 mg/dL (8.5-10.1)
[2024-10-02 07:58] LABS: ALBUMIN 3.5 g/dl (3.4-5.0); BLOOD UREA NITROGEN 21.4 mg/dL (7-18)
[2024-10-02 08:00] LABS: BILIRUBIN,TOTAL 0.3 mg/dL (0.2-1); CREATININE 1.1 mg/dL (0.55-1.3); TOT PROT 6.9 g/dl (6.4-8.2)
[2024-10-02 09:45] VITALS: BP 132/55; TEMP 98.1
== END 2024-10-02 14:06 | disposition home or self-care (01) ==
LOC: JER 16:30 → JERBED 19:58 → J4S 23:22
PROVIDERS: ADMIT Student in an Organized Health Care Education/Training Program; ATTEND Registered Nurse
PROC: 3E033NZ Introduction of Analgesics, Hypnotics, Sedatives into Peripheral Vein, Percutaneous Approach (ICD-10-PCS; principal; 2024-09-29)
PROC: 3E0337Z Introduction of Electrolytic and Water Balance Substance into Peripheral Vein, Percutaneous Approach (ICD-10-PCS; 2024-09-29)
DX: N17.9 Acute kidney failure, unspecified (principal); I45.9 Conduction disorder, unspecified; E11.40 Type 2 diabetes mellitus with diabetic neuropathy, unspecified; I16.0 Hypertensive urgency; E66.01 Morbid (severe) obesity due to excess calories; Z91.199 Patient's noncompliance with other medical treatment and regimen due to unspecified reason; J45.909 Unspecified asthma, uncomplicated; E87.5 Hyperkalemia; G47.33 Obstructive sleep apnea (adult) (pediatric); Z95.0 Presence of cardiac pacemaker; Z88.8 Allergy status to other drugs, medicaments and biological substances
CPT/HCPCS: 36415; 71045-TC-FY; 76775-TC; 80048; 80053; 81003; 82570; 82962; 83735; 83880; 84100; 84300; 84443; 84484; 85025; 85027; 85610; 85730; 93005; 93010; 99285-25; G0378; J0131; J1644

== ENCOUNTER 2025-02-27 22:04 | Observation (INO) | payer OTHER ==
[2025-02-27 22:11] VITALS: BMI 43.6
[2025-02-27 22:55] LABS: ABSOLUTE IMMATURE GRANULOCYTES 0.02 x10^3/uL (0.0-0.031); BASOPHILS # 0.03 x10^3/uL (0.01-0.08); EOSINOPHIL % 1.3 % (0.7-5.8); HEMATOCRIT 37.2 % (34.1-44.9); HEMOGLOBIN 12.6 g/dL (11.2-15.7); MCHC 33.9 g/dl (32.2-35.5); MONOCYTE # 0.53 x10^3/uL (0.24-0.86); MONOCYTE % 6.8 % (4.7-12.5); PLATELET COUNT 349 x10^3/uL (182-369); RDW 14.8 % (12.4-16.4)
[2025-02-27 23:20] LABS: ALBUMIN 4.1 g/dl (3.4-5.0); BILIRUBIN,TOTAL 0.4 mg/dl (0.2-1); CALCIUM 9.1 mg/dl (8.5-10.1); CREATININE 1.3 mg/dl (0.6-1.3); POTASSIUM 4.4 mmol/L (3.5-5.1); TOT PROT 6.8 g/dl (6.4-8.2)
[2025-02-28 06:35] VITALS: RESP 18
[2025-02-28] MEDS ORDERED: ALBUTEROL SO4 HFA INHALER IH PRN (11:42)
[2025-02-28] MEDS: ACETAMINOPHEN 325 MG TABLET (FP) PO PRN (12:16)
[2025-02-28] MEDS: ASPIRIN COATED 81 MG TABLET.EC PO SCH (12:16)
[2025-02-28 13:11] LABS: CHOLESTEROL 183 mg/dL (50-200); HDL CHOLESTEROL 58 mg/dL (40-60); LDL CHOLESTEROL (ONLY DFH) 92 mg/dL (5-100)
[2025-02-28 14:15] LABS: N-TERMINAL BNP 32.2 pg/ml (5-125)
[2025-02-28 18:07] LABS: PH,URINE 5.5 (4.5-8); URINE APPEARANCE CLEAR; URINE BILIRUBIN NEGATIVE (NEGATIVE); URINE COLOR YELLOW; URINE GLUCOSE (UA) NEGATIVE (NEGATIVE); URINE KETONE NEGATIVE (NEGATIVE); URINE LEUK ESTERASE NEGATIVE (NEGATIVE); URINE NITRITE NEGATIVE (NEGATIVE); URINE PROTEIN NEGATIVE (NEGATIVE); URINE UROBILINOGEN 0.2 (0.2-1.0)
[2025-02-28] MEDS: INSULIN ASPART SLIDING SCALE (NOVOLOG) 1 VIAL SQ SCH (18:08)
[2025-02-28] MEDS: ROSUVASTATIN CA 40 MG TABLET PO SCH (21:07)
[2025-03-01 07:54] LABS: ABSOLUTE IMMATURE GRANULOCYTES 0.01 x10^3/uL (0.0-0.031); BASOPHILS # 0.01 x10^3/uL (0.01-0.08); EOSINOPHIL % 1.8 % (0.7-5.8); EOSINOPHILS # 0.09 x10^3/uL (0.04-0.36); HEMATOCRIT 38.8 % (34.1-44.9); HEMOGLOBIN 12.8 g/dL (11.2-15.7); MEAN CELL VOLUME 83.3 fl (79.4-94.8); MEAN PLT VOLUME 9.4 fl (9.4-12.3); MONOCYTE # 0.46 x10^3/uL (0.24-0.86); PLATELET COUNT 313 x10^3/uL (182-369); RDW 14.8 % (12.4-16.4)
[2025-03-01 09:23] LABS: BILIRUBIN,TOTAL 0.5 mg/dl (0.2-1); CALCIUM 8.8 mg/dl (8.5-10.1); CREATININE 1.1 mg/dl (0.6-1.3); POTASSIUM 4.3 mmol/L (3.5-5.1); TOT PROT 6.3 g/dl (6.4-8.2)
[2025-03-01 14:34] VITALS: BP 110/54; PULSE 61; TEMP 98.1
[2025-03-01] MEDS: PANTOPRAZOLE 40 MG TABLET PO SCH (16:33)
== END 2025-03-01 17:45 | disposition home or self-care (01) ==
LOC: FER 22:04 → FM/S 02-28 07:05 → INTOOBSV 02-28 07:05
PROC: 3E013VG Introduction of Insulin into Subcutaneous Tissue, Percutaneous Approach (ICD-10-PCS; principal; 2025-02-28)
DX: R07.89 Other chest pain (principal); I11.0 Hypertensive heart disease with heart failure; I44.30 Unspecified atrioventricular block; R79.89 Other specified abnormal findings of blood chemistry; E11.9 Type 2 diabetes mellitus without complications; Z90.49 Acquired absence of other specified parts of digestive tract; I44.2 Atrioventricular block, complete; J45.909 Unspecified asthma, uncomplicated; G47.33 Obstructive sleep apnea (adult) (pediatric); Z88.8 Allergy status to other drugs, medicaments and biological substances
CPT/HCPCS: 36415; 71046-TC-FY; 80053; 80061; 81003; 82962; 83036; 83880; 84439; 84443; 84484; 85025; 93005; 93010; 99285-25; G0378